=== PATIENT | female | born 1960 | race Caucasian/White ===

== ENCOUNTER 2017-08-25 17:03 | Emergency (ER) | payer OTHER ==
[2017-08-25] MEDS ORDERED: cloNIDine HCL 0.2 MG TAB PO STA (17:15)
[2017-08-25 17:16] VITALS: RESP 18; TEMP 97.9
--- NOTE | 2017-08-25 17:24 | ED ---
General Adult HPI - General Chief complaint: Eye Problems Stated complaint: LEFT EYE PROBLEM Time Seen by Provider: 08/25/17 17:07 Source: patient, RN notes reviewed Mode of arrival: ambulatory Limitations: no limitations - History of Present Illness Initial comments: 57 yo female presents emergency 5 chief complaint of yellow drainage from the left eye. She states she's had some last few days. She states she has pain to the left eye. She states no changes in vision no fever or chills. She was concerned when the left eye started become swollen so she thought that she should be seen. There is been no fever chills. Patient states no other complaints. Patient denies any recent fever, chills, shortness of breath, chest pain, back pain, abdominal pain, nausea vomiting, numbness or tingling, dysuria or hematuria, constipation or diarrhea, headaches or visual changes, or any other current symptoms. - Related Data Home Medications Medication Instructions Recorded Confirmed cloNIDine HCL [Catapres] 0.2 mg PO BID 08/25/17 08/25/17 Previous Rx's Medication Instructions Recorded Cephalexin [Keflex] 500 mg PO Q6HR #40 cap 08/25/17 Allergies Allergy/AdvReac Type Severity Reaction Status Date / Time No Known Allergies Allergy Verified 08/25/17 17:15 Review of Systems ROS Statement: Those systems with pertinent positive or pertinent negative responses have been documented in the HPI. ROS Other: All systems not noted in ROS Statement are negative. Past Medical History Past Medical History: Diabetes Mellitus, Hypertension History of Any Multi-Drug Resistant Organisms: None Reported Past Surgical History: Cholecystectomy Additional Past Surgical History / Comment(s): hernia surgery Past Psychological History: No Psychological Hx Reported Smoking Status: Current every day smoker Past Alcohol Use History: None Reported Past Drug Use History: None Reported General Exam Limitations: no limitations General appearance: alert Eye exam: Present: PERRL, EOMI, conjunctival injection (Left eye), periorbital swelling, periorbital tenderness, other (Hordeolum to the left lower eye lid draining) ENT exam: Present: normal exam, mucous membranes moist Neck exam: Present: normal inspection. Absent: tenderness, meningismus, lymphadenopathy Respiratory exam: Present: normal lung sounds bilaterally. Absent: respiratory distress, wheezes, rales, rhonchi, stridor Cardiovascular Exam: Present: regular rate, normal rhythm, normal heart sounds. Absent: systolic murmur, diastolic murmur, rubs, gallop, clicks Skin exam: Present: warm, dry, intact, normal color. Absent: rash Course Vital Signs 08/25/17 08/25/17 17:14 18:10 Temperature 97.9 F Pulse Rate 100 98 Respiratory 18 18 Rate Blood Pressure 228/98 181/81 O2 Sat by Pulse 100 98 Oximetry - Reevaluation(s) Reevaluation #1: 08/25/17 17:22 Patient is a found to have an elevated blood pressure on this ER visit. At this time patient is informed to follow-up with his family care doctor for continued monitoring. Medical Decision Making - Medical Decision Making 57-year-old female presents emergency department with chief complaint of hordeolum to the left thigh. This time it is actively draining. This and we will start her on antibiotics for home. We discussed continuing warm compresses. We discussed return parameters and follow-up. She was found hypertensive heart she is due for her blood pressure patient. We gave her this urine blood pressure did start to trend down. We discussed also doctor for this. All questions have been answered. At this time she will be discharged. Disposition Clinical Impression: Hordeolum internum of left lower eyelid, Hypertension Disposition: HOME SELF-CARE Condition: Stable Instructions: Gil (ED) Additional Instructions: Please use medication as discussed. Please follow up with family doctor if symptoms have not improved over the next two days. Please return to the emergency room if your symptoms increase or worsen or for any other concerns. Continue to use the warm compresses and slowly drain the area. Use antibiotics as prescribed. Prescriptions: Cephalexin [Keflex] 500 mg PO Q6HR #40 cap Referrals: Kelvin Lane DO [Primary Care Provider] - 1-2 days
[2017-08-25 18:10] VITALS: BP 181/81; PULSE 98
== END 2017-08-25 18:14 | disposition home or self-care (01) ==
LOC: EC 17:03
DX: H00.025 Hordeolum internum left lower eyelid (principal); I10 Essential (primary) hypertension; F17.200 Nicotine dependence, unspecified, uncomplicated; Z79.899 Other long term (current) drug therapy
CPT/HCPCS: 99283

== ENCOUNTER 2018-01-24 01:23 | Emergency (ER) | payer OTHER ==
[2018-01-24] MEDS ORDERED: methylPREDNISolone SOD SUCCI 125 MG/2 ML VIAL IM ONE (02:19)
[2018-01-24] MEDS ORDERED: IPRATROPIUM-ALBUTEROL 3 ML NEB INHALATION STA (02:19)
[2018-01-24 02:26] VITALS: RESP 18
[2018-01-24 02:27] VITALS: TEMP 97.8
[2018-01-24] MEDS ORDERED: cloNIDine HCL 0.2 MG TAB PO STA (03:13)
--- NOTE | 2018-01-24 03:31 | XR ---
EXAM: XR Chest, 2 Views CLINICAL HISTORY: Pain TECHNIQUE: Frontal and lateral views of the chest. COMPARISON: Chest x-ray dated 08/07/2012 FINDINGS: Lungs: Diffuse interstitial opacities which may represent an inflammatory or infectious process. No focal consolidation. Pleural space: Unremarkable. No pneumothorax. Heart: Unremarkable. No cardiomegaly. Mediastinum: Unremarkable. Bones/joints: Unremarkable. IMPRESSION: Diffuse interstitial opacities which may represent an inflammatory or infectious process.
[2018-01-24 03:49] VITALS: BP 192/84; PULSE 80
--- NOTE | 2018-01-24 03:57 | ED ---
General Adult HPI - General Chief complaint: Upper Respiratory Infection Stated complaint: SEVEN Time Seen by Provider: 01/24/18 01:35 Source: patient Mode of arrival: ambulatory Limitations: no limitations - History of Present Illness Initial comments: 57-year-old female patient presents to the emergency department today with complaints of upper respiratory symptoms. Patient states she has been coughing and has had nasal congestion for the last week. Patient states over the last couple of days she has had increase in shortness of breath and sputum production. States that her sputum is green with brown flecks present. She denies any hemoptysis. Denies any fever or chills with this. Patient does have a history of COPD and is a cigarette smoker. Patient states that she has been using her Ventolin inhaler frequently throughout the day. She denies any chest pain, nausea, vomiting, sweats, or abdominal pain. Patient denies any recent rash, diarrhea, constipation, back pain, numbness, tingling, dizziness, weakness, hematuria, dysuria, urinary urgency, urinary frequency, headache, visual changes, or any other complaints. - Related Data Home Medications Medication Instructions Recorded Confirmed cloNIDine HCL [Catapres] 0.2 mg PO BID 08/25/17 01/24/18 Albuterol Inhaler [Ventolin Hfa 1 - 2 puff INHALATION RT-Q6H PRN 01/24/18 Inhaler] Enalapril [Vasotec] 5 mg PO DAILY 01/24/18 01/24/18 Hydrochlorothiazide [Hydrodiuril] 25 mg PO DAILY 01/24/18 01/24/18 Hydrocodone/Acetaminophen 1 tab PO Q6HR PRN 01/24/18 01/24/18 [Hydrocodon-Acetaminophn 10-325] Insulin Glargine,Hum.rec.anlog 40 unit SQ 01/24/18 [Basaglar Joseeikpen U-100] Meloxicam [Mobic] 7.5 mg PO DAILY 01/24/18 01/24/18 Mometasone/Formoterol [Dulera 200 2 puff INHALATION BID 01/24/18 01/24/18 Mcg/5 Mcg Inhaler] Pregabalin [Lyrica] 150 mg PO TID 01/24/18 01/24/18 lamoTRIgine [LaMICtal] 200 mg PO DAILY 01/24/18 01/24/18 metFORMIN HCL 1,000 mg PO BID 01/24/18 01/24/18 Previous Rx's Medication Instructions Recorded Clarithromycin [Biaxin] 500 mg PO Q12HR #20 tablet 01/24/18 predniSONE 50 mg PO DAILY #5 tablet 01/24/18 Allergies Allergy/AdvReac Type Severity Reaction Status Date / Time No Known Allergies Allergy Verified 08/25/17 17:15 Review of Systems ROS Statement: Those systems with pertinent positive or pertinent negative responses have been documented in the HPI. ROS Other: All systems not noted in ROS Statement are negative. Past Medical History Past Medical History: Diabetes Mellitus, Hypertension History of Any Multi-Drug Resistant Organisms: None Reported Past Surgical History: Cholecystectomy, Orthopedic Surgery Additional Past Surgical History / Comment(s): hernia surgery Past Psychological History: No Psychological Hx Reported Smoking Status: Current every day smoker Past Alcohol Use History: Rare Past Drug Use History: None Reported General Exam Limitations: no limitations General appearance: alert, in no apparent distress, other (This is a well- developed, obese adult female patient in no acute distress. Vital signs upon presentation temperature 98.6F, pulse 87, respirations 20, blood pressure 176/ 97, pulse ox 96% on room air.) Eye exam: Present: normal appearance, PERRL, EOMI. Absent: scleral icterus, conjunctival injection, periorbital swelling ENT exam: Present: normal exam, normal oropharynx, mucous membranes moist Respiratory exam: Present: normal lung sounds bilaterally, other (Patient able to speak full sentences without difficulty). Absent: respiratory distress, wheezes, rales, rhonchi, stridor Cardiovascular Exam: Present: regular rate, normal rhythm, normal heart sounds. Absent: systolic murmur, diastolic murmur, rubs, gallop, clicks GI/Abdominal exam: Present: soft, normal bowel sounds. Absent: distended, tenderness, guarding, rebound, rigid Neurological exam: Present: alert, oriented X3, CN II-XII intact Psychiatric exam: Present: normal affect, normal mood Skin exam: Present: warm, dry, intact, normal color. Absent: rash Course Vital Signs 01/24/18 01/24/18 01/24/18 01:26 02:24 02:25 Temperature 98.6 F 97.8 F Pulse Rate 87 90 Respiratory 20 18 18 Rate Blood Pressure 176/97 200/95 O2 Sat by Pulse 96 94 L Oximetry 01/24/18 01/24/18 01/24/18 02:47 02:56 03:47 Temperature 97.8 F Pulse Rate 74 88 80 Respiratory 18 Rate Blood Pressure 192/84 O2 Sat by Pulse 96 Oximetry Medical Decision Making - Medical Decision Making 57-year-old female patient presented to the emergency department today for complaints of cough, sputum production, and shortness of breath. Physical examination did reveal clear lung sounds. Patient is able to speak in full sentences and did not exhibit any respiratory distress. Patient is afebrile. Chest x-ray was reviewed and did show interstitial opacities which could represent an infectious process. Patient did receive a IM Solu-Medrol and DuoNeb breathing treatment. Upon reevaluation she is feeling much better and is demanding to be discharged. She'll be treated with Biaxin for possible pneumonia. She also be treated with prednisone for asthma exacerbation. She is instructed to continue taking her Ventolin inhaler. Return parameters discussed in detail. She is instructed to follow-up with her primary care physician for recheck in 1-2 days. She verbalizes understanding and agrees with this plan. - Radiology Data Radiology results: report reviewed, image reviewed Two-view x-ray of the chest was obtained. Report was reviewed in its entirety. Impression by Dr. Dutta shows diffuse interstitial opacities which may represent an inflammatory or infectious process. Disposition Clinical Impression: Pneumonia, COPD exacerbation Disposition: HOME SELF-CARE Condition: Good Instructions: COPD (Chronic Obstructive Pulmonary Disease) (ED), Pneumonia (ED) Additional Instructions: Take medications as directed. Follow up through primary care physician for recheck in 1-2 days. Return here immediately for any new, worsening, or concerning symptoms. Prescriptions: Clarithromycin [Biaxin] 500 mg PO Q12HR #20 tablet predniSONE 50 mg PO DAILY #5 tablet Is patient prescribed a controlled substance at d/c from ED?: No Referrals: Kelvin Lane DO [Primary Care Provider] - 1-2 days Time of Disposition: 03:56
== END 2018-01-24 03:52 | disposition home or self-care (01) ==
LOC: EC 01:23
DX: J44.0 Chronic obstructive pulmonary disease with (acute) lower respiratory infection (principal); J18.9 Pneumonia, unspecified organism; J44.1 Chronic obstructive pulmonary disease with (acute) exacerbation; E11.9 Type 2 diabetes mellitus without complications; I10 Essential (primary) hypertension; F17.200 Nicotine dependence, unspecified, uncomplicated; Z79.1 Long term (current) use of non-steroidal anti-inflammatories (NSAID); Z79.4 Long term (current) use of insulin; Z79.51 Long term (current) use of inhaled steroids; Z79.899 Other long term (current) drug therapy
CPT/HCPCS: 71046; 94640; 96372; 99283

== ENCOUNTER 2018-02-03 01:20 | Emergency (ER) | payer OTHER ==
[2018-02-03 01:27] VITALS: BP 177/100; PULSE 98; RESP 19; TEMP 97.7
[2018-02-03] MEDS ORDERED: HYDROcodone/APAP 10-325MG 1 EACH TAB PO ONE (01:37)
--- NOTE | 2018-02-03 01:42 | ED ---
Back Pain [facility] - General Chief Complaint: Back Pain/Injury Stated Complaint: Back Pain Time Seen by Provider: 02/03/18 01:29 Source: patient, RN notes reviewed Limitations: no limitations - History of Present Illness Initial Comments: 57-year-old female presents emergency from chief complaint of chronic back pain. Patient has back chronic pain meds for several years. She has always gone Dr. Lane'adam since 2001. Patient states that she was call for random drug screen and states that she does not have a car did not have transportation to going so [facility]. Patient states she was informed that she has to go see pain management from now on. Patient states that she's had no new injuries she has been trying to deal with the pain but states that 3 days without pain that she's been suffering. Patient denies any bowel bladder incontinence or retention. Denies any saddle anesthesias. She has chronic low back and mid back pain. - Related Data Home Medications Medication Instructions Recorded Confirmed cloNIDine HCL [Catapres] 0.2 mg PO BID 08/25/17 01/24/18 Albuterol Inhaler [Ventolin Hfa 1 - 2 puff INHALATION RT-Q6H PRN 01/24/18 Inhaler] Enalapril [Vasotec] 5 mg PO DAILY 01/24/18 01/24/18 Hydrochlorothiazide [Hydrodiuril] 25 mg PO DAILY 01/24/18 01/24/18 Insulin Glargine,Hum.rec.anlog 40 unit SQ 01/24/18 [Basaglar Jodiepen U-100] Meloxicam [Mobic] 7.5 mg PO DAILY 01/24/18 01/24/18 Mometasone/Formoterol [Dulera 200 2 puff INHALATION BID 01/24/18 01/24/18 Mcg/5 Mcg Inhaler] Pregabalin [Lyrica] 150 mg PO TID 01/24/18 01/24/18 lamoTRIgine [LaMICtal] 200 mg PO DAILY 01/24/18 01/24/18 metFORMIN HCL 1,000 mg PO BID 01/24/18 01/24/18 Previous Rx's Medication Instructions Recorded Clarithromycin [Biaxin] 500 mg PO Q12HR #20 tablet 01/24/18 predniSONE 50 mg PO DAILY #5 tablet 01/24/18 Hydrocodone/Acetaminophen 1 tab PO Q6HR PRN #12 tablet 02/03/18 [Hydrocodon-Acetaminophn 10-325] Allergies Allergy/AdvReac Type Severity Reaction Status Date / Time No Known Allergies Allergy Verified 02/03/18 01:27 Review of Systems ROS Statement: Those systems with pertinent positive or pertinent negative responses have been documented in the HPI. ROS Other: All systems not noted in ROS Statement are negative. Past Medical History Past Medical History: Diabetes Mellitus, Fibromyalgia, Hypertension, Osteoarthritis (OA) Additional Past Medical History / Comment(s): back pain, spinal stenosis, History of Any Multi-Drug Resistant Organisms: None Reported Past Surgical History: Cholecystectomy, Hernia Repair, Orthopedic Surgery Additional Past Surgical History / Comment(s): hernia surgery Past Psychological History: Depression Smoking Status: Current every day smoker Past Alcohol Use History: None Reported Past Drug Use History: None Reported General Exam Limitations: no limitations General appearance: alert, in no apparent distress Neck exam: Present: normal inspection. Absent: tenderness, meningismus, lymphadenopathy Respiratory exam: Present: normal lung sounds bilaterally. Absent: respiratory distress, wheezes, rales, rhonchi, stridor Cardiovascular Exam: Present: regular rate, normal rhythm, normal heart sounds. Absent: systolic murmur, diastolic murmur, rubs, gallop, clicks GI/Abdominal exam: Present: soft, normal bowel sounds. Absent: distended, tenderness, guarding, rebound, rigid Back exam: Present: normal inspection, full ROM, tenderness, paraspinal tenderness. Absent: vertebral tenderness Skin exam: Present: warm, dry, intact, normal color. Absent: rash Course Vital Signs 02/03/18 01:23 Temperature 97.7 F Pulse Rate 98 Respiratory 19 Rate Blood Pressure 177/100 O2 Sat by Pulse 97 Oximetry Medical Decision Making - Medical Decision Making 57-year-old female presented for back pain, medication refill. Patient does not have pain medication because she missed a brain and pelvis pain. Patient was reviewed and she has had no evidence of by any other providers in the last [address] Lane. She is always scheduled regimen. Patient will be given a 3 day prescription for her pain medication. Patient will be given pain management follow-up with. Disposition Clinical Impression: Chronic back pain Disposition: HOME SELF-CARE Condition: Stable Instructions: Chronic Back Pain (ED) Additional Instructions: Please return to the Emergency Department if symptoms worsen or any other concerns. Prescriptions: Hydrocodone/Acetaminophen [Hydrocodon-Acetaminophn 10-325] 1 tab PO Q6HR PRN # 12 tablet PRN Reason: Pain Is patient prescribed a controlled substance at d/c from ED?: Yes When asked, does pt state using other controlled substances?: Yes If prescribed controlled substance>3 days was MAPS reviewed?: Prescribed <3 Days If opioid is for acute pain is fill amount 7 days or less?: Yes If Rx opioid, was Start Talking consent form obtained?: Yes Referrals: Kelvin Lane DO [Primary Care Provider] - 1-2 days Jacob Hope MD [STAFF PHYSICIAN] - 1-2 days Miroslava Muñoz MD [STAFF PHYSICIAN] - 1-2 days Time of Disposition: 01:42
== END 2018-02-03 01:55 | disposition home or self-care (01) ==
LOC: EC 01:20
DX: G89.29 Other chronic pain (principal); M54.9 Dorsalgia, unspecified; E11.9 Type 2 diabetes mellitus without complications; M79.7 Fibromyalgia; I10 Essential (primary) hypertension; M19.90 Unspecified osteoarthritis, unspecified site; F32.9 Major depressive disorder, single episode, unspecified; F17.200 Nicotine dependence, unspecified, uncomplicated; Z90.49 Acquired absence of other specified parts of digestive tract; Z98.890 Other specified postprocedural states; Z79.1 Long term (current) use of non-steroidal anti-inflammatories (NSAID); Z79.4 Long term (current) use of insulin; Z79.51 Long term (current) use of inhaled steroids; Z79.899 Other long term (current) drug therapy
CPT/HCPCS: 99283

== ENCOUNTER 2018-03-04 22:28 | Emergency (ER) | payer OTHER ==
[2018-03-04 22:38] VITALS: RESP 18
--- NOTE | 2018-03-05 00:34 | ED ---
Back Pain [facility] - General Chief Complaint: Back Pain/Injury Stated Complaint: pain Time Seen by Provider: 03/05/18 00:29 Source: patient, RN notes reviewed, old records reviewed Limitations: no limitations - History of Present Illness Initial Comments: Patient is a 57-year-old female presents return with chronic pain. Patient states that she has been out of pain medicine for the past month. She seems her approximately one month ago and had a few pain pills at that time. She reports she had an MRI on her back today Patient states that she has a have a chronic back pain for many years. She reports she follows up with a spinal specialist and pain management doctor next week. Patient states that she's had no fevers or chills denies abdominal pain. She reports occasional peripheral paresthesias.her right leg. Patient states that she has no chest pain shortness of breath nausea or vomiting. - Related Data Home Medications Medication Instructions Recorded Confirmed cloNIDine HCL [Catapres] 0.2 mg PO BID 08/25/17 01/24/18 Albuterol Inhaler [Ventolin Hfa 1 - 2 puff INHALATION RT-Q6H PRN 01/24/18 Inhaler] Enalapril [Vasotec] 5 mg PO DAILY 01/24/18 01/24/18 Hydrochlorothiazide [Hydrodiuril] 25 mg PO DAILY 01/24/18 01/24/18 Insulin Glargine,Hum.rec.anlog 40 unit SQ 01/24/18 [Basaglar Kwikpen U-100] Meloxicam [Mobic] 7.5 mg PO DAILY 01/24/18 01/24/18 Mometasone/Formoterol [Dulera 200 2 puff INHALATION BID 01/24/18 01/24/18 Mcg/5 Mcg Inhaler] Pregabalin [Lyrica] 150 mg PO TID 01/24/18 01/24/18 lamoTRIgine [LaMICtal] 200 mg PO DAILY 01/24/18 01/24/18 metFORMIN HCL 1,000 mg PO BID 01/24/18 01/24/18 Previous Rx's Medication Instructions Recorded Clarithromycin [Biaxin] 500 mg PO Q12HR #20 tablet 01/24/18 predniSONE 50 mg PO DAILY #5 tablet 01/24/18 Hydrocodone/Acetaminophen 1 tab PO Q6HR PRN #12 tablet 02/03/18 [Hydrocodon-Acetaminophn 10-325] HYDROcodone/APAP 5-325MG [[place] 1 tab PO Q6HR PRN #10 tab 03/05/18 5-325] Allergies Allergy/AdvReac Type Severity Reaction Status Date / Time No Known Allergies Allergy Verified 03/04/18 22:38 Review of Systems ROS Statement: Those systems with pertinent positive or pertinent negative responses have been documented in the HPI. ROS Other: All systems not noted in ROS Statement are negative. Past Medical History Past Medical History: Diabetes Mellitus, Fibromyalgia, Hypertension, Osteoarthritis (OA) Additional Past Medical History / Comment(s): back pain, spinal stenosis, History of Any Multi-Drug Resistant Organisms: None Reported Past Surgical History: Cholecystectomy, Hernia Repair, Orthopedic Surgery Additional Past Surgical History / Comment(s): hernia surgery Past Psychological History: Depression Smoking Status: Current every day smoker Past Alcohol Use History: None Reported Past Drug Use History: None Reported General Exam - General Exam Comments Initial Comments: This patient's a 57-year-old female. She is alert and oriented. No significant distress. Limitations: no limitations General appearance: alert, in no apparent distress Head exam: Present: atraumatic, normocephalic, normal inspection Eye exam: Present: normal appearance, PERRL, EOMI. Absent: scleral icterus, conjunctival injection, periorbital swelling ENT exam: Present: normal exam, mucous membranes moist Neck exam: Present: normal inspection. Absent: tenderness, meningismus, lymphadenopathy Respiratory exam: Present: normal lung sounds bilaterally. Absent: respiratory distress, wheezes, rales, rhonchi, stridor Cardiovascular Exam: Present: regular rate, normal rhythm, normal heart sounds. Absent: systolic murmur, diastolic murmur, rubs, gallop, clicks GI/Abdominal exam: Present: soft, normal bowel sounds. Absent: distended, tenderness, guarding, rebound, rigid Extremities exam: Present: normal inspection Back exam: Present: normal inspection, full ROM, tenderness (Patient reports older spinal tenderness.) Neurological exam: Present: alert, oriented X3, CN II-XII intact Psychiatric exam: Present: normal affect, normal mood Course Vital Signs 03/04/18 22:33 Temperature 97.9 F Pulse Rate 101 H Respiratory 18 Rate Blood Pressure 191/126 O2 Sat by Pulse 95 Oximetry Medical Decision Making - Medical Decision Making 57-year-old female with chronic back pain presents with requesting a medication refill for pain management. Patient MAPS report was ran. Has not had any pain pills within the past 2 months. Patient MRI was completed today. I did review the chart. Evidence of some impingement L4-L5 and L2-L3. Patient does report some occasional radiculapathy off the pain. She does have an appointment in 2 weeks with painter and body work. I did write the Patient for a very short course of pain medicine. She'll follow-up with her pain management. All questions answered return parameters were discussed. - Radiology Data Radiology results: report reviewed Reviewed MRI earlier today. Disposition Clinical Impression: Chronic back pain Disposition: HOME SELF-CARE Condition: Fair Instructions: Chronic Back Pain (ED) Additional Instructions: Patient advised to follow-up with primary care physician and painter and body work. Return to the emergency department if any alarming signs or symptoms occur. Prescriptions: HYDROcodone/APAP 5-325MG [[place] 5-325] 1 tab PO Q6HR PRN #10 tab PRN Reason: Pain Is patient prescribed a controlled substance at d/c from ED?: Yes When asked, does pt state using other controlled substances?: No If prescribed controlled substance>3 days was MAPS reviewed?: Prescribed <3 Days If opioid is for acute pain is fill amount 7 days or less?: Yes If Rx opioid, was Start Talking consent form obtained?: Yes Referrals: Kelvin Lane DO [Primary Care Provider] - 1-2 days Time of Disposition: 00:34
[2018-03-05] MEDS ORDERED: HYDROcodone/APAP 5-325MG 1 EACH TAB PO STA (00:44)
[2018-03-05 00:54] VITALS: BP 160/95; PULSE 84; TEMP 98.2
== END 2018-03-05 00:54 | disposition home or self-care (01) ==
LOC: EC 22:28
DX: G89.29 Other chronic pain (principal); M54.9 Dorsalgia, unspecified; R20.2 Paresthesia of skin; E11.9 Type 2 diabetes mellitus without complications; I10 Essential (primary) hypertension; M79.7 Fibromyalgia; M19.90 Unspecified osteoarthritis, unspecified site; F32.9 Major depressive disorder, single episode, unspecified; F17.200 Nicotine dependence, unspecified, uncomplicated; Z79.4 Long term (current) use of insulin; Z79.51 Long term (current) use of inhaled steroids; Z79.899 Other long term (current) drug therapy; Z79.1 Long term (current) use of non-steroidal anti-inflammatories (NSAID)
CPT/HCPCS: 99283

== ENCOUNTER → 2018-03-04 | Outpatient (CLI) | payer OTHER ==
--- NOTE | 2018-03-04 23:16 | MR ---
EXAMINATION TYPE: MR lumbar spine wo con DATE OF EXAM: 03/04/2018 COMPARISON: HISTORY: Low back pain x5 years TECHNIQUE: Multiplanar, multisequence images of the lumbar spine were acquired. Lumbar vertebra have normal spacing and alignment. Posterior elements are intact. Lumbar nerve roots appear normal. The neuroforamina appear widely patent. There is no paraspinal mass. Sacroiliac joints appear intact. There is no focal bony destructive process. There is no compression fracture. There i s tiny posterior disc bulge at L2-3. There is a 7 mm synovial cyst on the right L4-5 facet joint encr oaching on the lateral recess. IMPRESSION: No spinal stenosis. Small posterior L2-3 disc bulge. No fracture. Mild lateral recess impingement due to synovial cyst at L4-5 on the right side.
== END | disposition home or self-care (01) ==
LOC: RADMRIMAIN 21:41
PROVIDERS: ATTEND Family Medicine
DX: M51.26 Other intervertebral disc displacement, lumbar region (principal); M71.38 Other bursal cyst, other site
CPT/HCPCS: 72148

== ENCOUNTER → 2018-04-01 | Outpatient (CLI) | payer OTHER ==
--- NOTE | 2018-04-01 15:02 | XR ---
EXAMINATION TYPE: XR thoracic spine 2V DATE OF EXAM: 04/01/2018 CLINICAL HISTORY: pain TECHNIQUE: Frontal, lateral, and swimmer's view of thoracic spine are obtained. COMPARISON: None. FINDINGS: Thoracic spine show satisfactory alignment without evidence of acute fracture or dislocatio n. Vertebral body heights are preserved. Moderate degenerative disc space narrowing and spondylosis. Visualized ribs are unremarkable. IMPRESSION: No acute fracture or dislocation is seen in the thoracic spine. ICD 10 NO FRACTURE, INIT IAL EVALUATION
--- NOTE | 2018-04-01 15:03 | XR ---
EXAMINATION TYPE: XR shoulder limited LT DATE OF EXAM: 04/01/2018 CLINICAL HISTORY: pain COMPARISON: NONE TECHNIQUE: Two views of the left shoulder are obtained. FINDINGS: There is no acute fracture/dislocation evident. The acromioclavicular and glenohumeral ursula int spaces appear within normal limits. The visualized ribs are intact and unremarkable. IMPRESSION: 1. There is no acute fracture or dislocation. ICD 10 NO FRACTURE, INITIAL EVALUATION
== END | disposition home or self-care (01) ==
LOC: RADXRMAIN 14:17
PROVIDERS: ATTEND Family Medicine
DX: M25.512 Pain in left shoulder (principal); M54.6 Pain in thoracic spine
CPT/HCPCS: 72070

== ENCOUNTER → 2018-05-30 | Outpatient (CLI) | payer OTHER ==
--- NOTE | 2018-06-03 08:57 | MM ---
Reason for exam: screening (asymptomatic). Last mammogram was performed 2 years and 1 month ago. History: Patient is postmenopausal. Family history of breast cancer in paternal aunt. Physical Findings: A clinical breast exam by your physician is recommended on an annual basis and results should be correlated with mammographic findings. MG Screening Mammo w CAD Bilateral CC and MLO view(s) were taken. Prior study comparison: April 17, 2016, bilateral MG screening mammo w CAD. May 26, 2009, mammogram, performed at [facility]. There are scattered fibroglandular densities. No significant changes when compared with prior studies. ASSESSMENT: Benign, BI-RAD 2 RECOMMENDATION: Routine screening mammogram of both breasts in 1 year.
== END | disposition home or self-care (01) ==
LOC: RADMAMWWP 16:55
PROVIDERS: ATTEND Family Medicine
DX: Z12.31 Encounter for screening mammogram for malignant neoplasm of breast (principal)
CPT/HCPCS: 77067

== ENCOUNTER 2018-08-26 16:57 | Emergency (ER) | payer OTHER ==
[2018-08-26 17:30] VITALS: TEMP 100
[2018-08-26] MEDS ORDERED: VANCOMYCIN IV PER PHARMACY 1 EACH MISC MISCELLANE PRN (19:49)
[2018-08-26] MEDS ORDERED: AMPICILLIN-SULBACTAM 3 GM in SODIUM CHLORIDE 0.9% 100 ML IVPB STA (19:49)
[2018-08-26] MEDS ORDERED: SODIUM CHLORIDE 0.9% 1,000 ML IV ONE ×2 (19:49→21:32)
[2018-08-26] MEDS ORDERED: cloNIDine HCL 0.2 MG TAB PO STA (19:51)
[2018-08-26] MEDS ORDERED: VANCOMYCIN 2,500 MG in SODIUM CHLORIDE 0.9% 500 ML 500 ML IVPB STA (19:57)
[2018-08-26] MEDS ORDERED: ONDANSETRON 4 MG/2 ML VIAL IVP STA (20:04)
[2018-08-26] MEDS ORDERED: MORPHINE SULFATE 4 MG/ML SYRINGE IVP STA (20:04)
--- NOTE | 2018-08-26 20:23 | ED ---
Skin/Abscess/FB HPI - General Source: patient Mode of arrival: ambulatory <Deborah Mitchell - Last Filed: 08/26/18 23:53> <Marily Linda - Last Filed: 08/27/18 09:55> - General Chief complaint: Skin/Abscess/Foreign Body Stated complaint: Abcesses Time Seen by Provider: 08/26/18 19:41 - History of Present Illness Initial comments: 58-year-old female patient presents to the emergency department today for evaluation of abscess to the lower portion of her pannus. Patient states that over the last couple of days she has noticed a painful swollen area to the skin fold. Patient states over the last 2 days the area has opened and has been draining purulent foul-smelling fluid. States that the redness is now extending up into her abdomen. States is becoming more painful. States that she has been feverish and nauseous. States it is unable to take her other medications her blood pressure has been high. She does admit to a history of hypertension and diabetes. She denies any history of abscess or similar symptoms. States that she did see her primary care physician who sent her here for admission and IV antibiotics. Patient denies any recent rash, shortness breath, chest pain, diarrhea, constipation, back pain, numbness, tingling, dizziness, weakness, hematuria, dysuria, urinary urgency, urinary frequency, headache, visual changes, or any other complaints. (Deborah Mitchell) - Related Data Home Medications Medication Instructions Recorded Confirmed cloNIDine HCL [Catapres] 0.2 mg PO BID 08/25/17 08/26/18 Albuterol Inhaler [Ventolin Hfa 1 - 2 puff INHALATION RT-Q6H PRN 01/24/18 Inhaler] Hydrochlorothiazide [Hydrodiuril] 25 mg PO DAILY 01/24/18 08/26/18 Insulin Glargine,Hum.rec.anlog 55 unit SQ HS 01/24/18 08/26/18 [Basaglar Jodiepen U-100] Mometasone/Formoterol [Dulera 200 2 puff INHALATION RT-BID 01/24/18 08/26/18 Mcg/5 Mcg Inhaler] Pregabalin [Lyrica] 150 mg PO TID 01/24/18 08/26/18 Cetirizine HCl [Zyrtec] 10 mg PO DAILY 08/26/18 08/26/18 Enalapril [Vasotec] 20 mg PO BID 08/26/18 08/26/18 Fenofibrate [Lofibra] 160 mg PO DAILY 08/26/18 08/26/18 Meloxicam [Mobic] 15 mg PO DAILY 08/26/18 08/26/18 amLODIPine [Norvasc] 5 mg PO DAILY 08/26/18 08/26/18 metFORMIN HCL [Glucophage] 1,000 mg PO BID 08/26/18 08/26/18 rOPINIRole HCL [Requip] 3 mg PO HS 08/26/18 08/26/18 Allergies Allergy/AdvReac Type Severity Reaction Status Date / Time No Known Allergies Allergy Verified 08/26/18 19:49 Review of Systems ROS Other: All systems not noted in ROS Statement are negative. <Deborah Mitchell - Last Filed: 08/26/18 23:53> ROS Other: All systems not noted in ROS Statement are negative. <Marily Linda - Last Filed: 08/27/18 09:55> ROS Statement: Those systems with pertinent positive or pertinent negative responses have been documented in the HPI. Past Medical History Past Medical History: Diabetes Mellitus, Fibromyalgia, Hypertension, Osteoarthritis (OA) Additional Past Medical History / Comment(s): back pain, spinal stenosis, History of Any Multi-Drug Resistant Organisms: None Reported Past Surgical History: Cholecystectomy, Hernia Repair, Orthopedic Surgery Additional Past Surgical History / Comment(s): hernia surgery Past Psychological History: Depression Smoking Status: Current every day smoker Past Alcohol Use History: None Reported Past Drug Use History: None Reported <Deborah Mitchell - Last Filed: 08/26/18 23:53> General Exam General appearance: alert, in no apparent distress, other (Physical well- developed, well-nourished adult female patient in no acute distress. Vital signs upon presentation are temperature 100.0F, pulse 85, respirations 16, blood pressure 187/102, pulse ox 98% on room air.) Eye exam: Present: normal appearance, PERRL, EOMI. Absent: scleral icterus, conjunctival injection, periorbital swelling ENT exam: Present: normal exam, normal oropharynx, mucous membranes moist Respiratory exam: Present: normal lung sounds bilaterally. Absent: respiratory distress, wheezes, rales, rhonchi, stridor Cardiovascular Exam: Present: regular rate, normal rhythm, normal heart sounds. Absent: systolic murmur, diastolic murmur, rubs, gallop, clicks GI/Abdominal exam: Present: soft, normal bowel sounds, other (Patient has a large abscess to the low abdomen beneath the pannus, there is extensive cellulitis extending up into the lower abdominal wall. Patient does have drainage of foul-smelling serosanguineous fluid.). Absent: distended, tenderness, guarding, rebound, rigid Neurological exam: Present: alert, oriented X3, CN II-XII intact Psychiatric exam: Present: normal affect, normal mood Skin exam: Present: warm, dry, intact, normal color. Absent: rash <Deborah Mitchell - Last Filed: 08/26/18 23:53> Vital Signs 08/26/18 08/26/18 17:25 21:11 Temperature 100.0 F H Pulse Rate 85 103 H Respiratory 16 20 Rate Blood Pressure 187/102 123/67 O2 Sat by Pulse 98 94 L Oximetry Medical Decision Making - Lab Data Result diagrams: 08/26/18 20:20 08/26/18 20:20 - Radiology Data Radiology results: report reviewed, image reviewed <Deborah Mitchell - Last Filed: 08/26/18 23:53> - Lab Data Result diagrams: 08/26/18 20:20 08/26/18 20:20 <Marily Linda - Last Filed: 08/27/18 09:55> - Medical Decision Making 58-year-old female patient with past medical history significant for hypertension, type 2 diabetes presents to the emergency department today for complaints of infection to her abdomen. Physical examination did reveal evidence of abscess to the mons pubis with cellulitis extending up on to the lower abdomen. Patient did have presence of serosanguineous foul-smelling drainage from the area of abscess. Labs reviewed and did reveal elevated white blood cell count at 24.1, glucose 847, plasma lactic acid 4.6, AST 37, alk phos 217. 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 Patient was given insulin, blood sugar down to 424, we will administer 10 additional units of regular. She is given 2 L of IV fluids. We did start Unasyn, vancomycin, and a dose of clindamycin. Did discuss the case with our surgeon Dr. Bustillos, he feels this requires higher level of care. Patient will be transferred to [facility], Dr. Joyce is accepting for ER to ER transfer. Did discuss findings, results, and plan with the patient, she is agreeable. (Deborah Mitchell) I personally saw and evaluated patient, patient with uncontrolled DM with hyperglycemia with progressively worsening cellulitis of her abdominal pannus. Labs are concerning for leukocytosis and lactic acidosis. Patient was treated with broad-spectrum antibiotics, computed tomography scan was ordered computed tomography scan does reveal multiple areas of air in the soft tissue. On exam patient does have multiple draining tracks of purulent fluid. Clinda was added to the antibiotic regimen. Patient care was discussed with the surgeon maori liaison adviser who recommends this patient be transferred to a facility with more surgical capabilities. This plan was discussed with the patient was agreeable to plan for transfer to [place] in [place]. Patient was transferred via EMS. Patient hemodynamically stable at time of transfer. (Marily Linda) - Lab Data Lab Results 08/26/18 08/26/18 08/26/18 Range/Units 20:20 20:20 20:20 WBC 24.1 H (3.8-10.6) k/uL RBC 5.71 H (3.80-5.40) m/uL Hgb 16.7 H (11.4-16.0) gm/dL Hct 51.7 H (34.0-46.0) % MCV 90.7 (80.0-100.0) fL MCH 29.3 (25.0-35.0) pg MCHC 32.3 (31.0-37.0) g/dL RDW 13.1 (11.5-15.5) % Plt Count 294 (150-450) k/uL Neutrophils % 90 % Lymphocytes % 4 % Monocytes % 5 % Eosinophils % 0 % Basophils % 0 % Neutrophils # 21.7 H (1.3-7.7) k/uL Lymphocytes # 1.0 (1.0-4.8) k/uL Monocytes # 1.1 H (0-1.0) k/uL Eosinophils # 0.1 (0-0.7) k/uL Basophils # 0.0 (0-0.2) k/uL Sodium 128 L (137-145) mmol/L Potassium 4.1 (3.5-5.1) mmol/L Chloride 90 L (98-107) mmol/L Carbon Dioxide 22 (22-30) mmol/L Anion Gap 16 mmol/L BUN 17 (7-17) mg/dL Creatinine 0.82 (0.52-1.04) mg/dL Est GFR (CKD-EPI)AfAm >90 (>60 ml/min/1.73 sqM) Est GFR (CKD-EPI)NonAf 79 (>60 ml/min/1.73 sqM) Glucose 847 H* (74-99) mg/dL POC Glucose (mg/dL) (75-99) mg/dL POC Glu Salvage Laborer ID Lactic Ac Sepsis Rflx Plasma Lactic Acid Wilman 4.6 H* (0.7-2.0) mmol/L Calcium 9.2 (8.4-10.2) mg/dL Total Bilirubin 0.9 (0.2-1.3) mg/dL AST 37 H (14-36) U/L ALT 25 (9-52) U/L Alkaline Phosphatase 217 H (38-126) U/L Total Protein 6.3 (6.3-8.2) g/dL Albumin 3.1 L (3.5-5.0) g/dL Acetone, Qual (Negative) 08/26/18 08/26/18 08/26/18 Range/Units 20:20 21:30 21:34 WBC (3.8-10.6) k/uL RBC (3.80-5.40) m/uL Hgb (11.4-16.0) gm/dL Hct (34.0-46.0) % MCV (80.0-100.0) fL MCH (25.0-35.0) pg MCHC (31.0-37.0) g/dL RDW (11.5-15.5) % Plt Count (150-450) k/uL Neutrophils % % Lymphocytes % % Monocytes % % Eosinophils % % Basophils % % Neutrophils # (1.3-7.7) k/uL Lymphocytes # (1.0-4.8) k/uL Monocytes # (0-1.0) k/uL Eosinophils # (0-0.7) k/uL Basophils # (0-0.2) k/uL Sodium (137-145) mmol/L Potassium (3.5-5.1) mmol/L Chloride (98-107) mmol/L Carbon Dioxide (22-30) mmol/L Anion Gap mmol/L BUN (7-17) mg/dL Creatinine (0.52-1.04) mg/dL Est GFR (CKD-EPI)AfAm (>60 ml/min/1.73 sqM) Est GFR (CKD-EPI)NonAf (>60 ml/min/1.73 sqM) Glucose (74-99) mg/dL POC Glucose (mg/dL) >600 H (75-99) mg/dL POC Glu Salvage Laborer ID Justine Waters Lactic Ac Sepsis Rflx Y Plasma Lactic Acid Wilman (0.7-2.0) mmol/L Calcium (8.4-10.2) mg/dL Total Bilirubin (0.2-1.3) mg/dL AST (14-36) U/L ALT (9-52) U/L Alkaline Phosphatase (38-126) U/L Total Protein (6.3-8.2) g/dL Albumin (3.5-5.0) g/dL Acetone, Qual Negative (Negative) 08/26/18 Range/Units 23:11 WBC (3.8-10.6) k/uL RBC (3.80-5.40) m/uL Hgb (11.4-16.0) gm/dL Hct (34.0-46.0) % MCV (80.0-100.0) fL MCH (25.0-35.0) pg MCHC (31.0-37.0) g/dL RDW (11.5-15.5) % Plt Count (150-450) k/uL Neutrophils % % Lymphocytes % % Monocytes % % Eosinophils % % Basophils % % Neutrophils # (1.3-7.7) k/uL Lymphocytes # (1.0-4.8) k/uL Monocytes # (0-1.0) k/uL Eosinophils # (0-0.7) k/uL Basophils # (0-0.2) k/uL Sodium (137-145) mmol/L Potassium (3.5-5.1) mmol/L Chloride (98-107) mmol/L Carbon Dioxide (22-30) mmol/L Anion Gap mmol/L BUN (7-17) mg/dL Creatinine (0.52-1.04) mg/dL Est GFR (CKD-EPI)AfAm (>60 ml/min/1.73 sqM) Est GFR (CKD-EPI)NonAf (>60 ml/min/1.73 sqM) Glucose (74-99) mg/dL POC Glucose (mg/dL) 424 H (75-99) mg/dL POC Glu Salvage Laborer ID Rosalina Shah Lactic Ac Sepsis Rflx Plasma Lactic Acid Wilman (0.7-2.0) mmol/L Calcium (8.4-10.2) mg/dL Total Bilirubin (0.2-1.3) mg/dL AST (14-36) U/L ALT (9-52) U/L Alkaline Phosphatase (38-126) U/L Total Protein (6.3-8.2) g/dL Albumin (3.5-5.0) g/dL Acetone, Qual (Negative) - Radiology Data CT pelvis with contrast was obtained. Report was reviewed in its entirety. Impression by Dr. Knight shows large left ovarian cyst. Sigmoid diverticulosis. No evidence of abscess within the pelvis. Extensive soft tissue inflammatory changes in the subcutaneous fat anteriorly on the right side that is consistent with cellulitis and phlegmon. No drainable fluid collection. Enlarged right inguinal lymph node. (Deborah Mitchell) Disposition - Out of Hospital Transfer - Req. Specs Out of Hospital Transfer - Requested Specifics: Other Emergency Center ([facility]) <Deborah Mitchell - Last Filed: 08/26/18 23:53> <Marily Linda - Last Filed: 08/27/18 09:55> Clinical Impression: Panniculitis, Sepsis Disposition: OTHER INSTITUTION NOT DEFINED Referrals: Kelvin Lane DO [Primary Care Provider] - 1-2 days
[2018-08-26 21:12] LABS: Basophils % (A) 0 %; Eosinophils # (A) 0.1 k/uL (0-0.7); Eosinophils % (A) 0 %; HCT 51.7 % (34.0-46.0); HGB 16.7 gm/dL (11.4-16.0); Lymphocytes % (A) 4 %; MCH 29.3 pg (25.0-35.0); MCHC 32.3 g/dL (31.0-37.0); MCV 90.7 fL (80.0-100.0); Mean Platelet Volume 7.6; Monocytes # (A) 1.1 k/uL (0-1.0); Monocytes % (A) 5 %; Neutrophils # (A) 21.7 k/uL (1.3-7.7); Neutrophils % (A) 90 %; Platelet Count 294 k/uL (150-450); RBC 5.71 m/uL (3.80-5.40); RDW 13.1 % (11.5-15.5); WBC 24.1 k/uL (3.8-10.6)
[2018-08-26 21:15] VITALS: BP 123/67; PULSE 103; RESP 20
[2018-08-26 21:21] LABS: ALT 25 U/L (9-52); AST 37 U/L (14-36); Albumin 3.1 g/dL (3.5-5.0); Alkaline Phosphatase 217 U/L (38-126); Anion Gap 16 mmol/L; Blood Urea Nitrogen 17 mg/dL (7-17); Calcium 9.2 mg/dL (8.4-10.2); Carbon Dioxide 22 mmol/L (22-30); Chloride 90 mmol/L (98-107); Potassium 4.1 mmol/L (3.5-5.1); Sodium 128 mmol/L (137-145); Total Bilirubin 0.9 mg/dL (0.2-1.3); Total Protein 6.3 g/dL (6.3-8.2)
[2018-08-26 21:30] LABS: Glucose 847 mg/dL (74-99)
[2018-08-26] MEDS ORDERED: INSULIN REGULAR 100 UNIT/ML VIAL IV ONE ×2 (21:32→23:52)
[2018-08-26] MEDS ORDERED: INSULIN REGULAR 100 UNIT/ML VIAL SQ ONE (21:32)
[2018-08-26 21:36] LABS: Glucose,Whole Blood >600 mg/dL (75-99)
--- NOTE | 2018-08-26 22:40 | CT ---
CT scan of the pelvis. History right groin abscess. Comparison 05/31/2016. TECHNIQUE: Multiple axial sections were obtained from the iliac crest to the subtrochanteric femurs with intrave nous contrast. The contrast was Isovue 100 mL. FINDINGS: There is extensive soft tissue air over the anterior lower abdomen on the right side extending down t o the pubic symphysis. There is increased density in the subcutaneous fat. There is no sign of pneumoperitoneum. There is no free fluid in the pelvis. There is 6 cm cyst in the left adnexal region. Uterus is anteverted. Bladder distends smoothly. The lower lumbar spine is inta ct. I see no pathologic enhancement. The bony pelvis is intact. There is no evidence for fracture. Th ere is contrast in the renal collecting systems without evidence of obstruction. There are multiple s igmoid diverticula without evidence of diverticulitis. There is no inguinal hernia. There is enlarged right inguinal lymph node that measures 2.2 cm. I see no drainable subcutaneous fluid collection. Ap pendix appears normal. IMPRESSION: Large left ovarian cyst. Sigmoid diverticulosis. No evidence of abscess within the pelvis. Extensive soft tissue air and inflammatory changes in the subcutaneous fat anteriorly on the right si de that is consistent with cellulitis and phlegmon. No drainable fluid collection. Enlarged right ing uinal lymph node.
[2018-08-26] MEDS ORDERED: CLINDAMYCIN 900 MG in DEXTROSE 5% IN WATER 50 ML IVPB STA ×2 (23:02)
[2018-08-26] MEDS ORDERED: ACETAMINOPHEN TAB 500 MG TAB PO STA (23:52)
[2018-08-27 00:33] LABS: Glucose,Whole Blood 424 mg/dL (75-99)
[2018-08-27] MEDS ORDERED: VANCOMYCIN 2,250 MG in SODIUM CHLORIDE 0.9% 500 ML 500 ML IVPB SCH (12:00)
== END 2018-08-27 01:05 | disposition other institution (70) ==
LOC: EC 16:57
DX: A41.9 Sepsis, unspecified organism (principal); M79.3 Panniculitis, unspecified; E11.9 Type 2 diabetes mellitus without complications; I10 Essential (primary) hypertension; M79.7 Fibromyalgia; M19.90 Unspecified osteoarthritis, unspecified site; F32.9 Major depressive disorder, single episode, unspecified; F17.200 Nicotine dependence, unspecified, uncomplicated; Z90.49 Acquired absence of other specified parts of digestive tract; Z98.890 Other specified postprocedural states; Z79.1 Long term (current) use of non-steroidal anti-inflammatories (NSAID); Z79.4 Long term (current) use of insulin; Z79.51 Long term (current) use of inhaled steroids; Z79.899 Other long term (current) drug therapy
CPT/HCPCS: 36415; 80053; 82009; 83605; 85025; 87040; 72193; 99284; 96365; 96366; 96368; 96375 ×2; 96361; J3370; J2270; J2405; J0295; Q9967

== ENCOUNTER 2019-07-19 00:03 | Emergency (ER) | payer OTHER ==
[2019-07-19 00:15] VITALS: RESP 18; TEMP 98.2
[2019-07-19] MEDS ORDERED: oxyCODONE-APAP 7.5-325MG 1 EACH TAB PO STA (00:18)
--- NOTE | 2019-07-19 00:36 | XR ---
EXAMINATION TYPE: XR elbow limited LT DATE OF EXAM: 07/19/2019 COMPARISON: NONE HISTORY: Fall. Pain. TECHNIQUE: 2 views FINDINGS: There is significant posterior soft tissue swelling over the olecranon process. I see no fr acture nor dislocation. There is no definite joint effusion. IMPRESSION: Significant posterior soft tissue swelling.
--- NOTE | 2019-07-19 00:37 | XR ---
EXAMINATION TYPE: XR wrist complete LT DATE OF EXAM: 07/19/2019 COMPARISON: NONE HISTORY: Pain TECHNIQUE: 4 views FINDINGS: There is some minimal deformity at the waist of the scaphoid bone that is suspicious for a nondisplaced fracture. There is no dislocation. Joint spaces are fairly normal. IMPRESSION: Possible nondisplaced scaphoid fracture.
--- NOTE | 2019-07-19 00:52 | ED ---
Fall HPI - General Chief Complaint: Fall Stated Complaint: Arm injury, Fall Time Seen by Provider: 07/19/19 00:10 Source: patient Mode of arrival: ambulatory - History of Present Illness Initial Comments: 59-year-old diabetic presenting to the emergency department today for chief complaint of fall. Patient states she attempted to use the hand on a chair to clean the top of her hutch when she lost her balance falling onto her left side breaking her fall with her left wrist and elbow. Patient denies any trauma to the chest had neck. Patient denies any mid or low back. Patient denies any injury to the hip knees or ankles. Patient denies use of anticoagulation therapy denies loss of consciousness. Patient denies any symptoms such as chest pain shortness of breath dizziness or headache prior to falling she states this was mechanical. Patient states most her pain is at the left wrist and she had noted bruising of the left elbow however has no decrease in range of motion. Remaining review of systems negative denies any other areas of complaints or injury. - Related Data Home Medications Medication Instructions Recorded Confirmed cloNIDine HCL [Catapres] 0.2 mg PO BID 08/25/17 08/26/18 Albuterol Inhaler [Ventolin Hfa 1 - 2 puff INHALATION RT-Q6H PRN 01/24/18 08/26/18 Inhaler] Hydrochlorothiazide [Hydrodiuril] 25 mg PO DAILY 01/24/18 08/26/18 Insulin Glargine,Hum.rec.anlog 55 unit SQ HS 01/24/18 08/26/18 [Niurkaaglderrick Ambrocio U-100] Mometasone/Formoterol [Dulera 200 2 puff INHALATION RT-BID 01/24/18 08/26/18 Mcg/5 Mcg Inhaler] Pregabalin [Lyrica] 150 mg PO TID 01/24/18 08/26/18 Cetirizine HCl [Zyrtec] 10 mg PO DAILY 08/26/18 08/26/18 Enalapril [Vasotec] 20 mg PO BID 08/26/18 08/26/18 Fenofibrate [Lofibra] 160 mg PO DAILY 08/26/18 08/26/18 Meloxicam [Mobic] 15 mg PO DAILY 08/26/18 08/26/18 amLODIPine [Norvasc] 5 mg PO DAILY 08/26/18 08/26/18 metFORMIN HCL [Glucophage] 1,000 mg PO BID 08/26/18 08/26/18 rOPINIRole HCL [Requip] 3 mg PO HS 08/26/18 08/26/18 Allergies Allergy/AdvReac Type Severity Reaction Status Date / Time No Known Allergies Allergy Verified 07/19/19 00:15 Review of Systems ROS Statement: Those systems with pertinent positive or pertinent negative responses have been documented in the HPI. ROS Other: All systems not noted in ROS Statement are negative. Past Medical History Past Medical History: Diabetes Mellitus, Fibromyalgia, Hypertension, Osteoarthritis (OA) Additional Past Medical History / Comment(s): back pain, spinal stenosis, History of Any Multi-Drug Resistant Organisms: None Reported Past Surgical History: Cholecystectomy, Hernia Repair, Orthopedic Surgery Additional Past Surgical History / Comment(s): hernia surgery Past Psychological History: Depression Smoking Status: Current every day smoker Past Alcohol Use History: None Reported Past Drug Use History: None Reported General Exam - General Exam Comments Initial Comments: General: The patient is awake and alert, in no distress, and does not appear acutely ill. Morbidly obese Eye: +3 mm pupils are equal, round and reactive to light, extra-ocular movements are intact. No nystagmus. There is normal conjunctiva bilaterally. No signs of icterus. Ears, nose, mouth and throat: There are moist mucous membranes and no oral lesions. No raccoon or Blair sign no midline tenderness to palpation of the cervical thoracic or lumbar spine. No scalp contusions abrasions or lacerations noted. Neck: The neck is supple, there is no tenderness or JVD. Cardiovascular: There is a regular rate and rhythm. No murmur, rub or gallop is appreciated. Respiratory: Lungs are clear to auscultation, respirations are non-labored, breath sounds are equal. No wheezes, stridor, rales, or rhonchi. Gastrointestinal: Soft, non-distended, non-tender abdomen without masses or organomegaly noted. There is no rebound or guarding present. Musculoskeletal: Upon inspection of the upper extremities bilaterally there is large area of ecchymosis and swelling consistent with hematoma over the left posterior distal humerus. Patient is able to fully range at the shoulders elbows bilaterally mild discomfort with range of motion of the left elbow. No evidence of wristdrop patient is able to pronate and supinate , she has significant pain with flexion and extension at the left wrist as well as anatomical snuffbox tenderness. Patient is able to make the okay fingers crossed thumbs-up and oppose the small digit and thumb. Compartments are soft and compressible radial pulses +2 equal comparison bilaterally. Strength preserved. Sensation intact both proximal distal to injury site. Neurological: A&O x 3. CN II-XII intact grossly, There are no obvious motor or sensory deficits. Coordination appears grossly intact. Speech is normal. Skin: Skin is warm and dry and no rashes or lesions are noted. Psychiatric: Cooperative, appropriate mood & affect, normal judgment. Limitations: no limitations Course Vital Signs 07/19/19 07/19/19 00:12 01:26 Temperature 98.2 F Pulse Rate 112 H 98 Respiratory 18 18 Rate Blood Pressure 208/113 117/94 O2 Sat by Pulse 97 97 Oximetry Medical Decision Making - Medical Decision Making This a 59-year-old feel presented for fall. Imaging studies concerning for scaphoid fracture. Patient placed in a thumb spica splint discussed risk of malunion and delayed healing associated with scaphoid fractures and the importance of orthopedic follow-up. Patient was neurovascularly intact both prior to and after splinting. And he states the elbow revealed no signs of acute fracture no posterior fat pad sign nor sale sign. I educated patient on since back treatment of hematoma. Otherwise patient has no complaints. Pain controlled, refused IV medications. Patient discharged appearing well after discussing the case with attending. Disposition Clinical Impression: Fall, Traumatic hematoma of elbow, Scaphoid fracture, Left wrist fracture Disposition: HOME SELF-CARE Condition: Good Instructions (If sedation given, give patient instructions): Scaphoid Fracture (ED), Hematoma (ED) Additional Instructions: Please use medication as discussed. Please follow-up with orthopedic surgery in next week. Please return to emergency room if the symptoms increase or worsen or for any other concerns. Is patient prescribed a controlled substance at d/c from ED?: No Referrals: Kelvin Lane DO [Primary Care Provider] - 1-2 days Jan Abel DO [Doctor of Osteopathic Medicine] - 1-2 days Time of Disposition: 01:08
[2019-07-19 01:27] VITALS: BP 117/94; PULSE 98
== END 2019-07-19 01:27 | disposition home or self-care (01) ==
LOC: EC 00:03
DX: S62.002A Unspecified fracture of navicular [scaphoid] bone of left wrist, initial encounter for closed fracture (principal); S50.02XA Contusion of left elbow, initial encounter; E11.9 Type 2 diabetes mellitus without complications; I10 Essential (primary) hypertension; F17.200 Nicotine dependence, unspecified, uncomplicated; Z79.4 Long term (current) use of insulin; Z79.1 Long term (current) use of non-steroidal anti-inflammatories (NSAID); Z79.899 Other long term (current) drug therapy; W07.XXXA Fall from chair, initial encounter; Y93.39 Activity, other involving climbing, rappelling and jumping off
CPT/HCPCS: 29125; 99283

== ENCOUNTER → 2020-04-06 | Outpatient (CLI) | payer OTHER ==
--- NOTE | 2020-04-07 05:43 | MR ---
EXAMINATION TYPE: MR wrist LT wo con DATE OF EXAM: 04/06/2020 COMPARISON: None HISTORY: Left wrist/distal forearm pain and swelling Multiplanar multiecho imaging of the left wrist was performed with no contrast. There is mild wrist joint effusion. The carpal bones appear intact. I see no fracture nor dislocation . The visualized metacarpals are intact. Distal radius and ulna appear intact. I see no focal bone de struction. Flexor and extensor tendons of the wrist appear intact. The triangular cartilage appears i ntact. I see no bony destructive process. There is no evidence of soft tissue mass. IMPRESSION: Joint spaces are fairly normal. There is slight narrowing of the radiocarpal joint space. No fracture . Mild wrist joint effusion suggestive of some nonspecific synovitis.
== END | disposition home or self-care (01) ==
LOC: RADMRIMAIN 18:47
PROVIDERS: ATTEND Nurse Practitioner
DX: M25.439 Effusion, unspecified wrist (principal)